=== PATIENT | female | born 1980 | race Caucasian/White ===

== ENCOUNTER 2021-12-19 10:08 | Day surgery (SDC) | payer OTHER, SELFPAY ==
[~2021-12-19] VITALS: Ht 152.4 cm; Wt 73.5 kg
[2021-12-19] MEDS ORDERED: fentaNYL citrate 0.05 MG/ML VIAL ONE (11:24)
[2021-12-19] MEDS ORDERED: diphenhydrAMINE 50 MG/ML VIAL ONE (11:24)
[2021-12-19] MEDS ORDERED: MIDAZOLAM 5 MG/5 ML VIAL ONE (11:25)
[2021-12-19] MEDS ORDERED: LIDOCAINE 2% 100 MG/5 ML UJET TP ONE (11:26)
[2021-12-19] MEDS ORDERED: MIDAZOLAM 2 MG/2 ML VIAL IVP ONE (12:55)
[2021-12-19] MEDS ORDERED: fentaNYL citrate 0.05 MG/ML VIAL IVP ONE (12:55)
== END 2021-12-19 12:55 | disposition home or self-care (01) ==
LOC: MDS 10:08 → MMU 10:08 → MDS 12:55
PROVIDERS: ATTEND Internal Medicine Gastroenterology
DX: K62.5 Hemorrhage of anus and rectum (principal); K59.00 Constipation, unspecified; Z87.891 Personal history of nicotine dependence; Z88.0 Allergy status to penicillin; Z88.5 Allergy status to narcotic agent; Z90.49 Acquired absence of other specified parts of digestive tract; Z90.710 Acquired absence of both cervix and uterus; Z20.822 Contact with and (suspected) exposure to COVID-19
CPT/HCPCS: 45378; 87426; J2250; J3010; J1200